=== PATIENT | male | born 1990 | race African-American/Black ===

== ENCOUNTER 2018-09-18 19:19 | Emergency (ER) | payer BC ==
[~2018-09-18] VITALS: Ht 165.1 cm; Wt 70.3 kg
--- NOTE | 2018-09-18 19:45 | NUR ---
PT CAME TO ER C/O SEEING SPOTS, PT ADMITS TO BINGE DRINKING AND NOT SLEEPING WELL FOR THE PAST WEEK. AAXO4. NAD NOTED. PENDING EVAL FROM ER .
--- NOTE | 2018-09-18 20:01 | NUR ---
LAB CALLED FOR BLOOD DRAW.
--- NOTE | 2018-09-18 20:07 | NUR ---
CARDIOGRAPH OPERATOR AT BEDSIDE FOR BLOOD DRAW.
--- NOTE | 2018-09-18 20:30 | NUR ---
Patient is resting comfortably in bed with eyes closed. Easily aroused. NAD.
[2018-09-18 20:43] LABS: APPEARANCE,URINE CLEAR (CLEAR); BILIRUBIN,URINE NEGATIVE (NEGATIVE); BLOOD, URINE NEGATIVE Ery/uL (NEGATIVE); COLOR,URINE YELLOW (YELLOW); KETONES,URINE TRACE (NEGATIVE); LEUKOCYTE ESTERASE ,URINE NEGATIVE (NEGATIVE); NITRITE, URINE NEGATIVE (NEGATIVE); PH,URINE 5.5 (5.0-8.0); PROTEIN,URINE NEGATIVE (NEGATIVE); UGLUCOSE NEGATIVE (NEGATIVE); UROBILINOGEN,URINE 0.2 EU/dL (0.2)
[2018-09-18 20:51] LABS: BASOPHILS % (AUTO) 0.5 % (0.0-2.0); EOSINOPHILS % (AUTO) 2.5 % (0.0-6.0); HEMATOCRIT 46 % (39-51); HEMOGLOBIN 14.9 g/dL (13.5-17.5); LYMPHOCYTES # (AUTO) 1.5 /CMM (0.8-4.8); LYMPHOCYTES % (AUTO) 24.3 % (20.0-44.0); MEAN CORPUSCULAR HGB CONC 32 g/dl (31.0-36.0); MEAN CORPUSCULAR VOLUME 80 fL (80-96); MONOCYTES # (AUTO) 0.4 /CMM (0.1-1.30); MONOCYTES % (AUTO) 6.1 % (2.0-12.0); NEUTROPHILS # (AUTO) 4.2 /CMM (1.8-8.9); NEUTROPHILS % (AUTO) 66.6 % (43.0-81.0); PLATELET COUNT (AUTO) 284 /CMM (150-450); RED BLOOD CELL COUNT(AUTO) 5.82 MIL/uL (4.5-6.0); WHITE BLOOD COUNT (AUTO) 6.4 K/uL (4.3-11.0)
[2018-09-18 20:53] LABS: CALCIUM, SERUM 9.3 mg/dL (8.5-10.1); CARBON DIOXIDE 28 mmol/L (21-32); CHLORIDE 105 mmol/L (98-107); CREATININE 1.3 mg/dL (0.6-1.3); GLUCOSE 68 mg/dL (74-106); POTASSIUM 3.9 mmol/L (3.5-5.1); SODIUM SERUM 140 mmol/L (136-145); UREA NITROGEN, BLOOD 15 mg/dL (7-18)
[2018-09-18 20:55] LABS: ALANINE AMINOTRANSFERASE 21 U/L (12-78); ALBUMIN 4.4 g/dL (3.4-5.0); ALKALINE PHOSPHATASE 91 U/L (46-116); ASPARTATE AMINOTRANSFERASE 16 U/L (15-37); BILIRUBIN,DIRECT 0.1 mg/dL (0.0-0.2); BILIRUBIN,TOTAL 0.4 mg/dL (0.2-1.0); TOTAL PROTEIN, SERUM 7.7 g/dL (6.4-8.2)
[2018-09-18 20:56] LABS: ACETAMINOPHEN 0 ug/ml (10-30); ALCOHOL, BLOOD < 3 mg/dL (0-0); SALICYLATE 2.4 mg/dL (2.8-20.0)
[2018-09-18 20:57] LABS: BACTERIA,URINE None seen /HPF (None Seen); RBC,URINE NONE SEEN /HPF (0-2); SQUAMOUS EPITHELIAL CELL,UR Few /HPF (None Seen); WBC,URINE NONE SEEN /HPF (0-3)
--- NOTE | 2018-09-18 21:54 | NUR ---
Patient discharged to home in stable condition. Written and verbal after care instructions given. Patient verbalizes understanding of instruction. PT AMBULATED WITH STEADY GAIT. NAD NOTED.
[2018-09-18 21:55] VITALS: BP 145/88
== END 2018-09-18 21:55 | disposition home or self-care (01) ==
LOC: ER 19:25
DX: H53.9 Unspecified visual disturbance (principal); F17.200 Nicotine dependence, unspecified, uncomplicated; Z98.890 Other specified postprocedural states; Z60.2 Problems related to living alone
CPT/HCPCS: 36415; 80048-TC; 80076-TC; 80305; 81000-TC; 84443-TC; 85025-TC; G0480

== ENCOUNTER 2020-07-17 20:57 | Emergency (ER) | payer BC ==
[~2020-07-17] VITALS: Ht 167.6 cm; Wt 74.8 kg
--- NOTE | 2020-07-17 21:27 | NUR ---
BIBS FROM HOME TO ER BED 7. AAOX4. NOT IN RESP DISTRESS. AMBULATORY. CAME IN FOR GEN ABDOMINAL PAIN, BLOOD IN STOOL AND DIARRHEA. PER PT SYMPTOMS STARTED 4 DAYS AGO. PAT RATE HIS PAIN 4/10. BLOOD IN STOOL IS DESCRIBED BLACK AND BRIGHT RED. PT ALSO IS REPORTING DIARRHEA. PT IS NOTRED WITH ORAL TEMP OF 99.5. MD WAS AT THE BEDSIDE FOR EVAL. ORDERS RECEIVED NOTED AND CARRIED OUT. IV LNE WAS ESTABLISHED ON LFA 18G, BLOOD DRAWN AND GIVEN TO SHOT PEENING OPERATOR AT BEDSIDE. URINE COLLECTED WELL AND SENT TO LAB
[2020-07-17 21:29] LABS: BASOPHILS # (AUTO) 0.1 /CMM (0.0-0.2); BASOPHILS % (AUTO) 0.6 % (0.0-2.0); EOSINOPHILS % (AUTO) 3.1 % (0.0-6.0); HEMATOCRIT 40 % (39-51); HEMOGLOBIN 12.7 g/dL (13.5-17.5); LYMPHOCYTES # (AUTO) 1.9 /CMM (0.8-4.8); LYMPHOCYTES % (AUTO) 18.3 % (20.0-44.0); MEAN CORPUSCULAR HGB CONC 32 g/dl (31.0-36.0); MEAN CORPUSCULAR VOLUME 80 fL (80-96); MONOCYTES % (AUTO) 9.7 % (2.0-12.0); NEUTROPHILS # (AUTO) 7.2 /CMM (1.8-8.9); NEUTROPHILS % (AUTO) 68.3 % (43.0-81.0); PLATELET COUNT (AUTO) 288 /CMM (150-450); RED BLOOD CELL COUNT(AUTO) 4.92 MIL/uL (4.5-6.0); WHITE BLOOD COUNT (AUTO) 10.5 K/uL (4.3-11.0)
[2020-07-17] MEDS ORDERED: IV NS 0.9% 1,000 ML BAG IV ONE (21:30)
[2020-07-17 21:53] LABS: CALCIUM, SERUM 8.9 mg/dL (8.5-10.1); POTASSIUM 3.5 mmol/L (3.5-5.1)
[2020-07-17 22:05] LABS: BILIRUBIN,DIRECT 0.1 mg/dL (0.0-0.2); BILIRUBIN,TOTAL 0.1 mg/dL (0.2-1.0); TOTAL PROTEIN, SERUM 7.2 g/dL (6.4-8.2)
--- NOTE | 2020-07-17 23:52 | NUR ---
Patient discharged to home in stable condition. Written and verbal after care instructions given. Patient verbalizes understanding of instruction.IV removed. Catheter intact and site benign. Pressure and 4x4 applied to site. No bleeding noted.Pt ambulatory with a steady gait
[2020-07-17 23:53] VITALS: BP 134/77
== END 2020-07-17 23:53 | disposition home or self-care (01) ==
LOC: ER 21:00
DX: K52.9 Noninfective gastroenteritis and colitis, unspecified (principal); Z98.890 Other specified postprocedural states; Z60.2 Problems related to living alone
CPT/HCPCS: 36415; 80048; 80076; 83690; 85025; 96360; 99283; J7030

== ENCOUNTER 2020-09-18 20:45 | Emergency (ER) | payer BC ==
[~2020-09-18] VITALS: Ht 165.1 cm; Wt 77.1 kg
[2020-09-18 22:33] VITALS: BP 152/99
[2020-09-18] MEDS ORDERED: LIDOCAINE 2%-EPI 1:100,000 30 ML VIAL ONE (23:00)
[2020-09-18] MEDS ORDERED: ACETAMINOPHEN 325 MG TABLET PO ONE (23:00)
[2020-09-18] MEDS ORDERED: ACETAMINOPHEN ES 500 MG TABLET ONE (23:06)
--- NOTE | 2020-09-18 23:11 | NUR ---
JOSE SCOTT AT BEDSIDE FOR I&D
== END 2020-09-18 23:31 | disposition home or self-care (01) ==
LOC: ER 20:46
DX: L02.31 Cutaneous abscess of buttock (principal); R23.4 Changes in skin texture; Z98.890 Other specified postprocedural states; Z60.2 Problems related to living alone
CPT/HCPCS: 10060; 99283; A6403; A6407; J3490

== ENCOUNTER 2021-07-24 22:55 | Emergency (ER) | payer BC, MEDICAID ==
[~2021-07-24] VITALS: Ht 167.6 cm; Wt 74.8 kg
--- NOTE | 2021-07-25 00:49 | NUR ---
PT AAOX4. AMBULATORY WITH STEADY GAIT. BIBS FOR C/O RLQ ABD PAIN AND BLOOD IN STOOL X 1 DAY. PLACED IN BED 9 ON MONITOR AND PULSE OX. AWAITING ER MD FOR EVAL AND ORDERS. NO ACUTE DISTRESS NOTED. URINE SAMPLE COLLECTED, SENT TO LAB.
[2021-07-25] MEDS ORDERED: ONDANSETRON HCL/PF 4 MG/2 ML VIAL ONE (01:39)
[2021-07-25] MEDS ORDERED: HYDROMORPHONE 1 MG/1 ML DISP.SYRIN ONE (01:39)
[2021-07-25] MEDS ORDERED: PANTOPRAZOLE 40 MG VIAL ONE (01:39)
[2021-07-25 01:52] LABS: BASOPHILS % (AUTO) 0.5 % (0.0-2.0); EOSINOPHILS % (AUTO) 0.2 % (0.0-6.0); HEMATOCRIT 47 % (39-51); HEMOGLOBIN 15.3 g/dL (13.5-17.5); LYMPHOCYTES % (AUTO) 14.8 % (20.0-44.0); MEAN CORPUSCULAR HGB CONC 33 g/dl (31.0-36.0); MEAN CORPUSCULAR VOLUME 79 fL (80-96); MONOCYTES # (AUTO) 0.5 K/uL (0.1-1.30); MONOCYTES % (AUTO) 7.4 % (2.0-12.0); NEUTROPHILS # (AUTO) 5.3 K/uL (1.8-8.9); NEUTROPHILS % (AUTO) 77.1 % (43.0-81.0); PLATELET COUNT (AUTO) 214 K/uL (150-450); RED BLOOD CELL COUNT(AUTO) 5.93 MIL/uL (4.5-6.0); WHITE BLOOD COUNT (AUTO) 6.9 K/uL (4.3-11.0)
[2021-07-25] MEDS ORDERED: IOHEXOL-300 100 ML VIAL IV ONE (01:54)
--- NOTE | 2021-07-25 01:57 | NUR ---
AMBULATED TO THE RESTROOM TO PROVIDE A FECAL SAMPLE.
[2021-07-25] MEDS ORDERED: ONDANSETRON HCL/PF 4 MG/2 ML VIAL IVP ONE (02:00)
[2021-07-25] MEDS ORDERED: PANTOPRAZOLE 40 MG VIAL IV ONE (02:00)
[2021-07-25] MEDS ORDERED: HYDROMORPHONE INJ 2 MG/ML DISP.SYRIN IV ONE (02:00)
--- NOTE | 2021-07-25 02:14 | NUR ---
FECAL SAMPLE SENT TO LAB.
[2021-07-25 02:15] LABS: CALCIUM, SERUM 9.3 mg/dL (8.5-10.1); CREATININE 1.2 mg/dL (0.6-1.3); POTASSIUM 4.2 mmol/L (3.5-5.1)
[2021-07-25 02:25] LABS: OCCULT BLOOD STOOL POSITIVE (NEGATIVE)
[2021-07-25 02:27] LABS: ALBUMIN 3.4 g/dL (3.4-5.0); BILIRUBIN,DIRECT 0.1 mg/dL (0.0-0.2); BILIRUBIN,TOTAL 0.3 mg/dL (0.2-1.0); TOTAL PROTEIN, SERUM 7.8 g/dL (6.4-8.2)
--- NOTE | 2021-07-25 02:31 | NUR ---
BROUGHT TO CT
--- NOTE | 2021-07-25 02:44 | NUR ---
BROUGHT BACK FROM CT
[2021-07-25] MEDS ORDERED: PRED20TA PO (03:50)
[2021-07-25] MEDS ORDERED: AMOX-430 PO (03:50)
[2021-07-25] MEDS ORDERED: predniSONE 20 MG TABLET ONE (03:56)
[2021-07-25] MEDS ORDERED: AMOX/CLAVULANATE 875 MG TABLET ONE (03:56)
[2021-07-25] MEDS ORDERED: predniSONE 50 MG TABLET PO ONE (04:00)
[2021-07-25] MEDS ORDERED: AMOX/CLAVULANATE 875 MG TABLET PO ONE (04:00)
--- NOTE | 2021-07-25 04:05 | NUR ---
IV removed. Catheter intact and site benign. Pressure and 4x4 applied to site. No bleeding noted.Patient discharged to home in stable condition. rx and Written and verbal after care instructions given. Patient verbalizes understanding of instruction.
[2021-07-25 04:06] VITALS: BP 143/88
== END 2021-07-25 04:08 | disposition home or self-care (01) ==
LOC: ER 23:05
DX: K52.9 Noninfective gastroenteritis and colitis, unspecified (principal); Z98.890 Other specified postprocedural states; Z60.2 Problems related to living alone; Z79.899 Other long term (current) drug therapy
CPT/HCPCS: 36415; 74177; 80048; 80076; 82272; 83690; 85025; 85730; 96374; 99285; C9113; J1170; J2405; J7512; Q9967